=== PATIENT | female | born 1965 | race Caucasian/White ===

== ENCOUNTER 2023-10-26 07:25 | Emergency (ER) | payer OTHER ==
[~2023-10-26] VITALS: Ht 157.5 cm; Wt 99.8 kg
[2023-10-26] MEDS ORDERED: DIAZEPAM5 MG/1 M1 PO (07:34)
[2023-10-26] MEDS ORDERED: PROMETRIUM200 MG PO (07:34)
[2023-10-26] MEDS ORDERED: LIPITOR40 M1 PO (07:34)
[2023-10-26] MEDS ORDERED: DICLOFENAC SODI75 MG PO (10:27)
[2023-10-26] MEDS ORDERED: NORFLEX100MG PO (10:27)
[2023-10-26] MEDS ORDERED: PEPCID AC20 MG PO (10:48)
[2023-10-26] MEDS ORDERED: ONDANSETRON ODT8 MG PO (10:48)
== END 2023-10-26 11:08 | disposition home or self-care (01) ==
LOC: ER 07:25
DX: M54.59 Other low back pain (principal)